=== PATIENT | male | born 2000 | race Caucasian/White ===

== ENCOUNTER 2023-06-04 20:24 | Emergency (ER) | payer OTHER, SELFPAY ==
[2023-06-04 20:26] VITALS: BP 164/101
[2023-06-04 20:43] LABS: % Basophils 0.6 % (0-2); % Eosinophils 1.5 % (0-6); % Immature Granulocytes 0.3 % (0-0.5); % Lymphocytes 41.4 % (20.5-51.1); % Monocytes 11.1 % (1.7-9.3); % Neutrophils 45.1 % (42.2-75.2); Absolute Basophils 0.1 10^3/uL (0-0.2); Absolute Eosinophils 0.2 10^3/uL (0-0.7); Absolute Lymphocytes 4.1 10^3/uL (1.2-3.4); Absolute Monocytes 1.1 10^3/uL (0.1-0.6); Absolute Neutrophils 4.4 10^3/uL (1.4-6.5); Hematocrit 48.5 % (39.0-52.0); Hemoglobin 17.9 g/dL (13.0-18.0); Mean Corp Hgb Conc. 36.9 g/dL (33.0-37.0); Mean Corpuscular Hgb 32.8 pg (27.0-31.0); Mean Corpuscular Volume 88.8 fL (80.0-94.0); Mean Platelet Volume 9.6 fL (7.4-10.4); Nucleated Red Blood Cells % 0 % (-); Platelet Count 262 10^3/uL (130-400); Red Blood Cell Count 5.46 10^6/uL (4.70-6.10); Red Cell Dist. Width 12.4 % (11.5-14.5); White Blood Cell Count 9.8 10^3/uL (4.8-10.8)
[2023-06-04 21:12] LABS: Troponin I < 0.012 ng/ml
[2023-06-04 21:20] LABS: ALT (SGPT) 93 U/L (0-50); AST (SGOT) 59 U/L (17-59); Albumin 5.6 g/dl (3.5-5.0); Alkaline Phosphatase 97 U/L (38-126); Blood Urea Nitrogen 16 mg/dl (9-20); Calcium 10.2 mg/dl (8.4-10.2); Carbon Dioxide 20 mmol/L (22-30); Chloride 100 mmol/L (98-107); Glucose 149 mg/dl (70-99); Potassium 3.4 mmol/L (3.5-5.1); Sodium 139 mmol/L (135-145); Total Bilirubin 0.8 mg/dl (0.2-1.3); Total Protein 9.2 g/dl (6.3-8.2); eGFR > 60.00
[2023-06-04 21:50] LABS: TSH Reflex To Free T4 5.26 uIU/ml (0.47-4.68)
--- NOTE | 2023-06-04 21:55 | ED.GENMED ---
History of Present Illness
General
Chief Complaint: Fainting/Passed Out
Source: patient and family
Time Seen by Provider: 06/04/23 21:29
Travel History
Have you had any contact with someone who has COVID-19?: No
Do you have any symptoms of coronavirus? Fever > 100 degrees, chills, cough, shortness of breath, sore throat, loss of taste or smell, muscle aches, or headache?: No
History of Present Illness
History of Present Illness:
This patient is a 23-year-old male who fell perfectly well today, eat or drink as usual, and attended work as he typically would. He was out to dinner with his girlfriend, had a total of 2 margaritas, and started to feel hot, sweaty, lightheaded,
and his ears ringing like he might pass out. He stood up and walked over to a chair, while he was sitting on the chair he continued to complain of symptoms and had a brief loss of consciousness lasting less than 30 seconds. This was witnessed. He
was lowered to the ground and did not suffer any trauma or head injury. There was no seizure-like activity noted, no urinary incontinence, noticed postictal state. Patient denies symptoms otherwise preceding or after the event. He specifically
denies headache, neck pain, visual changes, chest pain, shortness of breath, leg swelling or pain, abdominal pain. His mother is present denies any family history of related illnesses such as congenital heart disease, etc. Patient has had 2-3
episodes of syncope in his lifetime, considered vasovagal at that time.
Past History
Past History
ED Past Medical History: Other (Allergies)
ED Past Surgical History: Other (Dental)
Social History
Tobacco: Non-smoker
Alcohol: Occasional
Drug: None
Personal: Single
Living: with roommate
Employment: Employed
Phy Exam
Physical Exam
Physical Exam:
GENERAL: Alert , in no apparent distress, nontoxic and well-appearing
EYE: pupils equal and reactive
NECK: Supple, no significant adenopathy.
ENT: o/p clr, mmm.
CARDIAC: Regular rate and rhythm .
LUNGS: Clear breath sounds bilaterally, no acute respiratory distress, no wheezes/rales/rhonchi
ABDOMEN: Soft, without focal tenderness, no r/g, no cvat
NEUROLOGICAL: Alert and oriented, no focal neuro deficits, [id number] normal, cranial nerves II through XII intact, motor 5 out of 5, sensory intact
SKIN: Warm and dry, skin intact.
MUSCULOSKELETAL: No edema, well perfused.
PSYCH: Normal and appropriate interaction.
Course
Orders/Labs/Results
Orders:
Orders
06/04/23 20:26
Electrocardiogram (*1) Urgent
Reason for Study: Syncope
EKG- Treatment ONCE
06/04/23 20:38
Complete Blood Count/With Diff Urgent
Comprehensive Metabolic Panel Urgent
Free T4 Urgent
TSH Reflex To Free T4 Urgent
Troponin I Urgent
06/04/23 21:44
0.9% Sodium Chloride 500 ml [Nss] 500 ml IV BOLUS
06/04/23 22:09
0.9% Sodium Chloride 1000 ml [Nss] 1,000 ml IV BOLUS
Abnormal Lab Results
06/04/23
20:38
MCH 32.8 H pg
(27.0-31.0)
Absolute Lymphs (auto) 4.1 H 10^3/uL
(1.2-3.4)
Absolute Monos (auto) 1.1 H 10^3/uL
(0.1-0.6)
Monocytes % 11.1 H %
(1.7-9.3)
Potassium 3.4 L mmol/L
(3.5-5.1)
Carbon Dioxide 20 L mmol/L
(22-30)
Glucose 149 H mg/dl
(70-99)
ALT 93 H U/L
(0-50)
Total Protein 9.2 H g/dl
(6.3-8.2)
Albumin 5.6 H g/dl
(3.5-5.0)
TSH (Reflex) 5.26 H uIU/ml
(0.47-4.68)
06/04/23 20:38
06/04/23 20:38
Vital Signs
Initial and Last Documented VS:
Initial Vital Signs
Temp Pulse Resp BP Pulse Ox
98.1 F 112 16 164/101 100
06/04/23 20:26 06/04/23 20:26 06/04/23 20:26 06/04/23 20:26 06/04/23 20:26
Last Documented Vital Signs
Temp Pulse Resp BP Pulse Ox
98.1 F 80 19 125/74 98
06/04/23 20:26 06/04/23 22:55 06/04/23 22:55 06/04/23 22:55 06/04/23 22:55
*Critical Care Note
Total Time (30-74mins, 75-104mins- exclusive of procedures): Not Applicable
Update Note
Update Note:
Patient presents to the Emergency Department with ___syncopal event
Number and Complexity of Problems Addressed at the Encounter
� Chronic conditions affecting care:
� Acute Exacerbation and/or Progression of Chronic Illness:
� Differential Diagnosis includes: But not limited to electrolyte disorder, dehydration, vasovagal event, etc.
Amount and/or Complexity of Data to be Reviewed and Analyzed
� I performed an independent evaluation of and my interpretation is:
EKG: Read by me, sinus tachycardia, no acute ischemia, no LVH/IHH S, no long QT, no Brugada
CT:
Xrays:
Laboratory Studies: Generally unremarkable
Other:
� Review of other/old records reveals:
� Clinical information was obtained by an independent historian: Girlfriend and mother who are at bedside
� Prescriptions/Medications Considered but not given:
� Further testing considered but not performed:
Risk of Complications and/or Morbidity or Mortality of Patient Management
� Social determinants of health affecting care:
� Discussion with other providers (PCP, Hospitalists, Consultants, etc):
� Escalation of care including admission/observation vs risk of discharge considered:LABS/ECG unremkarable,pt remaisn asx, strongly suspect vasovagal event,d /wp t improt of f/u and reasons to rted.
ED Attending Note
-
Portions of this chart may have been created with voice recognition software.� Occasional wrong word or��sound alike� substitutions may have occurred due to the inherent limitations of voice recognition software.
Discharge Plan
Departure
Patient Disposition: Home (Routine Discharge)
Date of Disposition: 06/04/23
Time of Disposition: 23:20
Patient with high blood pressure during this ER visit?: Yes
Condition: Good
Discharge Problem:
Syncope
Instructions: Syncope (Fainting) (DC), BLOOD PRESSURE
Referrals:
Rupert Bain MD [Family Provider] - Next open appointment
Activity Restrictions/Additional Instructions:
IF YOU DEVELOP CHEST PAIN, TROUBLE BREATHING, FEVER, REPEATED VOMITING, NUMBNESS, SEVERE HEADACHE, DIZZINESS, OR OTHER WORRISOME SIGNS, GO TO THE ER IMMEDIATELY!
Interventions
Interventions:
*Risk Screen - Suicide Last Done: 06/04/23 20:26
*General Assessment Last Done: 06/04/23 20:26
*Neglect/Abuse Screening Last Done: 06/04/23 20:26
*ED COVID-19 Vaccine History Last Done: 06/04/23 20:26
ED- Cardiac Assessment Last Done: 06/04/23 22:37
ED- Neurological Assessment Last Done: 06/04/23 22:37
[2023-06-04] MEDS: NSS 1000 IV (22:16)
[2023-06-04 22:19] LABS: Free T4 1.09 ng/dl (0.78-2.19)
[2023-06-04 22:55] VITALS: BP 125/74
[2023-06-04 23:30] VITALS: BP 111/77
== END 2023-06-04 23:35 | disposition home or self-care (01) ==
LOC: EMR 20:24
PROVIDERS: Emergency Medicine; EMERGENCY PHYSICIAN Emergency Medicine; FAMILY PHYSICIAN Family Medicine
DX: R55 Syncope and collapse (principal)
CPT/HCPCS: 99283; 96360; 80053; 84439; 84443; 84484; 85025; 93005